=== PATIENT | female | born 1995 | race Two or more races ===

== ENCOUNTER 2025-04-17 22:27 | Emergency (ER) | payer MEDICAID, SELFPAY ==
[2025-04-17 22:41] VITALS: BP 100/67; PULSE 80; RESP 18; TEMP 36.4; O2SAT 95
--- NOTE | 2025-04-17 23:01 | XR_ITS ---
Examination: CT brain head without contrast. 2-D sagittal coronal reconstructions Date and time of exam: April 18, 2025, 0132 hours INDICATIONS: Headaches nausea today CTDI: vol (mGy): 46.4 DLP: (mGycm): 874 Technique: Multiple CT axial sections of the brain have been obtained, 5 mm slice thickness. Contrast has not been administered. 2-D sagittal, coronal reconstructions have been obtained Low dose protocols were performed. One or more of the following dose reduction techniques were used; automated exposure control, adjustment of the mA and/or KV according to patient size, use of iterative reconstruction technique. Findings: No significant ventricular enlargement. Intra-axial or extra-axial hemorrhage density is not seen. No mass effect or midline shift Basal cisterns are not remarkable. Fourth ventricle is midline. Cranial vault intact. Impression: Negative for acute hemorrhage, mass effect or midline shift
[2025-04-18 00:01] LABS: Basophils # (Auto) 0.1 Thou/mm3 (0.0-0.2); Basophils % (Auto) 1 % (0-2.5); Eosinophils # (Auto) 0.2 Thou/mm3 (0.0-0.5); Eosinophils % (Auto) 2 % (0-10); Hematocrit 36.5 % (36.0-46.0); Hemoglobin 11.8 g/dL (12.0-16.0); Immature Granulocytes Auto 0.03 Thou/mm3 (0.00-0.00); Lymphocytes # (Auto) 3.0 Thou/mm3 (1.0-4.8); Lymphocytes % (Auto) 32 % (10-50); Mean Corpuscular HGB Conc 32.3 g/dl (31.0-37.0); Mean Corpuscular Hemoglobin 28.8 pg (25.0-35.0); Mean Corpuscular Volume 89 fL (80-100); Monocytes # (Auto) 0.7 Thou/mm3 (0.0-0.8); Monocytes % (Auto) 7 % (0-12); Neutrophils # (Auto) 5.5 Thou/mm3 (1.8-7.7); Neutrophils % (Auto) 58 % (37-80); Nucleated Red Blood Cell # 0.00 Thou/mm3 (0.00-0.00); Nucleated Red Blood Cell % 0 /100 WBC (0); Platelet Count 246 Thou/mm3 (140-440); RDW Standard Deviation 44.2 fL (36.4-46.3); Red Blood Count 4.10 Miln/mm3 (4.00-5.20); White Blood Count 9.5 Thou/mm3 (3.6-11.0)
[2025-04-18 00:10] LABS: HCG,Qualitative Serum Negative
[2025-04-18 00:28] LABS: Alanine Aminotransferase 10 U/L (10-49); Albumin, Serum 4.7 gm/dL (3.5-5.0); Albumin/Globulin Ratio 1.9 (1.2-2.2); Alkaline Phosphatase 92 U/L (46-116); Anion Gap 8 (7-16); Aspartate Amino Transferase 16 U/L (0-34); BUN/Creatinine Ratio 15 Ratio (12-20); Bilirubin,Total 0.5 mg/dL (0.3-1.2); Blood Urea Nitrogen 9 mg/dL (9-23); Calcium 9.4 mg/dL (8.3-10.6); Calcium (Corrected) 9.4 mg/dL (8.5-10.1); Carbon Dioxide 29.6 mMol/L (20.0-31.0); Chloride 105 mMol/L (98-107); Creatinine (Component) 0.6 mg/dL (0.6-1.3); Globulin 2.5 gm/dL (2.3-3.5); Glucose 120 mg/dL (74-106); Osmolality,Calculated 284 (275-295); Potassium 3.1 mMol/L (3.4-5.1); Sodium 143 mMol/L (136-145); Total Protein 7.2 gm/dL (5.7-8.2); eGFR > 60 See Note
--- NOTE | 2025-04-18 02:01 | PRELIM_ITS ---
CT scan of the head without intravenous contrast (axial sections with sagittal and coronal reformats) April 18, 2025 0132 hours Clinical history: Headache. Comparison: No prior study is available for comparison. Findings: Several images are degraded due to motion artifacts making evaluation somewhat suboptimal. There is no definitive evidence of intracranial hemorrhage, mass effect or midline shift, to the extent visualized. The ventricles and CSF spaces are unremarkable. The calvarium is unremarkable. The mastoid air cells and the visualized paranasal sinuses are clear. Impression: Limited evaluation due to motion artifacts. 1. No definitive evidence of intracranial hemorrhage, mass effect or midline shift, to the extent visualized. 2. Other findings as described above. Report Electronically Signed By: Gil Reyes 04/18/2025 2:00:54 AM [EST]
[2025-04-18 03:41] VITALS: BP 102/65; PULSE 77; RESP 18; TEMP 36.8; O2SAT 99
[2025-04-18] MEDS: ONDANSETRON ODT 4 MG TABRAP PO (03:43)
[2025-04-18] MEDS: HYDROcodone/APAP 5/325 TABLET 1 TAB PO (03:43)
--- NOTE | 2025-07-16 07:54 | EDNOTE_ITS ---
ED Headache RME/HPI General Chief Complaint: Headache Stated Complaint: HEADACHE AND NAUSEA Time Seen by Provider: 04/17/25 22:55 Arrival date/time: 04/17/25 22:27 This is a case of 30-year-old female with no medical history came in in the emergency room due to headache frontal area throbbing in character associated with nausea no vomiting no dizziness no blurring of vision for 1 day Limitations: no limitations Related Data Previous Rx's ?Medication ?Instructions ?Recorded vcafihsfvd-exwvzbpagmnfj-aabrxvjh 1 cap PO Q6H PRN andry n #14 caps 04/18/25 50 mg-325 mg-40 mg capsule ibuprofen 800 mg tablet 800 mg PO Q8H PRN pain #20 t abs 04/18/25 ondansetron 4 mg disintegrating 4 mg PO Q8H #20 tabs 1 06/18/24 tablet ondansetron 4 mg disintegrating 4 mg PO Q8H #20 tabs 1 06/18/24 tablet Allergies Allergy/AdvReac Type Severity Reaction Status Date / Time No Known Allergies Allergy Verified 04/17/25 22:29 Review of Systems Review of Systems Systems Reviewed: All systems reviewed, normal except as documented Past Medical History Social History SMOKING STATUS: Current some day smoker ED Exam General Limitations: Present no limitations General appearance: Present alert, in no apparent distress and other (Patient is awake alert oriented not in distress nontoxic looking well-hydrated well- nourished) Head Head exam: Present atraumatic, normocephalic and normal inspection Eye Eye exam: Present normal appearance, PERRL, EOMI and other (PERRL EOM INTACT NO PAPPILEDEMA) ENT ENT exam: Present normal exam, normal oropharynx, mucous membranes moist and other (HEENT NORMAL) Neck Neck exam: Present normal inspection, full ROM, trachea midline and other (NEGATIVE FOR MENIGEAL SIGN); Absent tenderness, meningismus, lymphadenopathy or thyromegaly Chest Chest inspection: Present normal inspection and symmetric chest wall rise; Absent tenderness Respiratory Respiratory exam: Present normal lung sounds bilaterally; Absent respiratory distress, wheezes, stridor, accessory muscle use or prolonged expiratory phase Cardiovascular Cardiovascular exam: Present regular rate, normal rhythm and normal heart sounds; Absent bradycardia, tachycardia, irregular rhythm, systolic murmur or diastolic murmur Abdominal Exam Abdominal exam: Present soft and normal bowel sounds Extremities Exam Extremities exam: Present normal inspection and full ROM Back Exam Back exam: Present normal inspection and full ROM Neurological Exam Neurological exam: Present alert, oriented X3, CN II-XII intact, normal gait, reflexes normal and other (Awake alert oriented x 4 no focal deficit GCS 15/15 steady gait memory intact no slurring speech no facial droop motor or sensory reflex are all normal in all extremities negative Babinski); Absent motor sensory deficit Psychiatric Psychiatric exam: Present normal affect and normal mood Skin Skin exam: Present warm, dry, intact and normal color Course Quality Measures none Orders Category Date Time Status CT head/brain wo con Stat Exams 04/17/25 23:01 Completed CBC Stat Lab 04/17/25 23:22 Completed CMP [Comprehensive Metabolic Panel] Stat Lab 04/17/25 23:22 Completed HCG,Qualitative Serum Stat Lab 04/17/25 23:22 Completed HYDROcodone*/APAP 5/325 [[place] 5/325] Med 04/18/25 02:40 Discontinued 1 tab PO X1 ONE Ketorolac Inj [Toradol Inj] Med 04/18/25 02:40 Discontinued 30 mg IM X1 ONE Ondansetron Odt [Zofran Odt] Med 04/18/25 02:40 Discontinued 4 mg PO X1 ONE Potassium Chloride [K-Dur] Med 04/18/25 02:41 Discontinued 40 meq PO X1 ONE Vital Signs Vital signs: Vital Signs Temperature 97.6 F 04/17/25 22:41 Pulse Rate 80 04/17/25 22:41 Respiratory Rate 18 04/17/25 22:41 Blood Pressure 100/67 04/17/25 22:41 Pulse Oximetry (%) 95 04/17/25 22:41 Oxygen Delivery Method Room Air 04/17/25 22:41 STABLE VS Headache MDM Narrative MDM Narrative:: Patient was discharged with comfortable condition walking with stable gait. Patient verbalized no further complains explained diagnosis and answered patient question. Patient is comfortable with the proposed management plan including the need to follow up with his/her primary care physician and any specialist if applicable Discussed patient for any urgent condition or worsening sx, He/She needed to go to emergency room immediately or call 911. Patient acknowledge the responsibility to follow up as instructed and to monitor her/his symptoms. For any persistence of the symptoms for more than 3-5 days return precaution advised. Discussed the result of the test and was given printed discharge instruction Patient data External records reviewed:: [facility] previous records Clinical information provided by:: patient Social determinants that could affect healthcare access:: none Patient has the following chronic illnesses:: NONE How is presenting disease/condition affected by chronic disease/condition?: no chronic disease Evaluation data The following diagnostics were reviewed and interpreted by me:: lab results and radiology exam(s) Lab and/or radiology exams considered but not ordered:: REVIEWED Interpretation Summary: REVIEWED Medications / Prescriptions Medications or Prescriptions considered but not ordered:: GIVEN Medication administrations:: Medication Administration History Discontinued Medications Hydrocodone Bitart/Acetaminophen (Hydrocodone/Apap 5/325 Tablet) 1 tab PO X1 ONE Stop: 04/18/25 02:41 Last Admin: 04/18/25 03:43 Dose: 1 tab Documented By: ROSALIO Ketorolac Tromethamine (Ketorolac Inj 60 Mg/2 Ml Vial) 30 mg IM X1 ONE Stop: 04/18/25 02:41 Last Admin: 04/18/25 03:46 Dose: Not Given Documented By: ROSALIO Non-Admin Reason: Patient Refused Ondansetron HCl (Ondansetron Odt 4 Mg Tabrap) 4 mg PO X1 ONE; Protocol Stop: 04/18/25 02:41 Last Admin: 04/18/25 03:43 Dose: 4 mg Documented By: ROSALIO Potassium Chloride (Potassium Chloride 20 Meq Tabcr) 40 meq PO X1 ONE Stop: 04/18/25 02:42 Last Admin: 04/18/25 03:44 Dose: 40 meq Documented By: ROSALIO GIVEBN Consultations Consultation(s) initiated? (list below): No Diagnosis Differential diagnosis headache: migraine, tension headache, headache and sinusitis Most likely diagnosis given after review of the tests above:: HEADACHE Admission Indicated Admission indicated?: not indicated Explain why admission is indicated or not indicated:: NOT INDICATED Admission Request Was there a request for admission?: No Admission Attestation Admission request attestation: NOT INDICATED Disposition Plan Disposition Plan: Discharge Discharge Attestation Discharge Attestation: The patient and all family members were given an opportunity to ask questions and understood the discharge instructions. Discharge instructions specifically effects, indications for sooner follow up or return to the emergency department, and the expected course of current diagnosis. Patient condition: Stable Discharge Plan Plan Patient Disposition: HOME (Self Care) Patient condition on transfer: Stable Prescriptions/Referrals Prescriptions/Med Rec: New pdqgbamaji-apitpbbajjbhu-negt 50-325-40 mg capsule 1 cap PO Q6H PRN (Reason: pain) Qty: 14 0RF ondansetron 4 mg tablet,disintegrating 4 mg PO Q8H Qty: 20 0RF ondansetron 4 mg tablet,disintegrating 4 mg PO Q8H Qty: 20 0RF ibuprofen 800 mg tablet 800 mg PO Q8H PRN (Reason: pain) Qty: 20 0RF Referrals: Alberto Leon MD [Primary Care Provider, Family Practice] - In 1 week Problem List Clinical Impression: Headache, Hypokalemia Patient/Caregiver Discharge Instructions Education Materials: Self-Care for Headaches, ED Hypokalemia Additional Instructions: Follow-up with your primary care physician in 2 days for reevaluation and to be referred to neurologist for further evaluation and treatment of your headache follow-up with your primary care physician to monitor level of potassium as an outpatient eat banana every day increase water intake keep hydrated take the medication as directed worsening symptoms or any emergent concern return to the emergency room immediately or call 911 Print Language: Danish Stand Alone Forms: Traci Award Info., Patient Portal Info Letter PA/MILLING MACHINE TENDER Supervising Physician PA/MILLING MACHINE TENDER Supervising Physician: Dr. Villeda
== END 2025-04-18 03:53 | disposition home or self-care (01) ==
PROVIDERS: Nurse Practitioner Family; Emergency Provider Emergency Medicine; PCP Family Medicine
DX: E87.6 Hypokalemia (principal)
CPT/HCPCS: 36415; 70450; 80053; 84703; 85025; 99283; Q0162; A9270